=== PATIENT | male | born 1940 | race Caucasian/White ===

== ENCOUNTER 2017-02-05 19:01 | Emergency (ER) | payer MEDICARE, BC ==
[2017-02-05 20:37] LABS: ABSOLUTE EOSINOPHILS # (AUTO) 0.1 10^3/uL (0.0-0.6); ABSOLUTE LYMPHOCYTES (AUTO) 1.5 10^3/uL (0.5-4.7); ABSOLUTE MONOCYTES (AUTO) 0.5 10^3/uL (0.1-1.4); ABSOLUTE NEUT (AUTO) 4.1 10^3/uL (1.7-8.2); BASOPHILS % (AUTO) 0.7 % (0-2); EOSINOPHILS % (AUTO) 1.1 % (0-6); HEMATOCRIT 43.7 % (37.9-51.0); HEMOGLOBIN 14.7 g/dL (13.5-17.0); HGB HCT DIFFERENCE 0.4; LYMPHOCYTES % (AUTO) 23.8 % (13-45); MEAN CORPUSCULAR HEMOGLOBIN 30.2 pg (27.0-33.4); MEAN CORPUSCULAR HGB CONC 33.7 g/dL (32.0-36.0); MEAN CORPUSCULAR VOLUME 90 fl (80-97); MONOCYTES % (AUTO) 7.4 % (3-13); RED BLOOD COUNT 4.86 10^6/uL (4.35-5.55); RED CELL DISTRIBUTION WIDTH 14.5 % (11.5-14.0); WHITE BLOOD COUNT 6.1 10^3/uL (4.0-10.5)
--- NOTE | 2017-02-05 21:16 | RADIOLOGY REPORT (SQ) ---
EXAM DESCRIPTION: CT HEAD WITHOUT COMPLETED DATE/TIME: 02/05/2017 9:00 pm REASON FOR STUDY: intermittent confusion COMPARISON: None. TECHNIQUE: Axial images acquired through the brain without intravenous contrast. Images reviewed wi th bone, brain and subdural windows. Images stored on PACS. All CT scanners at this facility use dose modulation, iterative reconstruction, and/or weight based d osing when appropriate to reduce radiation dose to as low as reasonably achievable (ALARA). [facility]: Dose Right [facility]: CareDose [facility]: Dose Right [facility]: Teradose 4D [facility]: X2IMPACT RADIATION DOSE: mGy. LIMITATIONS: None. FINDINGS: VENTRICLES: Prominent. CEREBRUM: No masses. No hemorrhage. No midline shift. Areas of low density in the white matter mos t likely due to chronic micro-vascular ischemic change. No evidence for acute infarction. CEREBELLUM: No masses. No hemorrhage. No alteration of density. No evidence for acute infarction. EXTRAAXIAL SPACES: Mild age-related involutional change. No fluid collections. No masses. ORBITS AND GLOBE: No intra- or extraconal masses. Normal contour of globe without masses. CALVARIUM: No fracture. PARANASAL SINUSES: No fluid or mucosal thickening. SOFT TISSUES: No mass or hematoma. OTHER: No other significant finding. IMPRESSION: MILD CHRONIC CHANGES OF ATROPHY AND MICROVASCULAR ISCHEMIA. NO ACUTE PROCESS. EVIDENCE OF ACUTE STROKE: NO. TECHNICAL DOCUMENTATION: JOB ID: [id number] [place]-72 Quality ID # [id number]: Final reports with documentation of one or more dose reduction techniques (e.g., Au tomated exposure control, adjustment of the mA and/or kV according to patient size, use of iterative reconstruction technique) 2010 [employer]- All Rights Reserved
[2017-02-05 21:29] LABS: ALANINE AMINOTRANSFERASE 40 U/L (21-72); ALBUMIN 4.7 g/dL (3.5-5.0); ALCOHOL < 10 mg/dL (NONE DETECTED); ALKALINE PHOSPHATASE 70 U/L (38-126); ANION GAP 13 (5-19); ASPARTATE AMINO TRANSFERASE 30 U/L (17-59); BILIRUBIN,DIRECT 0.5 mg/dL (0.0-0.4); BILIRUBIN,TOTAL 0.8 mg/dL (0.2-1.3); BLOOD UREA NITROGEN 15 mg/dL (7-20); CALCIUM 10.2 mg/dL (8.4-10.2); CARBON DIOXIDE 27 mmol/L (22-30); CHLORIDE 104 mmol/L (98-107); CREATININE RESULT 0.82 mg/dL (0.52-1.25); GLUCOSE 91 mg/dL (75-110); POTASSIUM 4.3 mmol/L (3.6-5.0); SODIUM 144.3 mmol/L (137-145); TOTAL PROTEIN 7.6 g/dL (6.3-8.2)
[2017-02-05] MEDS ORDERED: TAMSULOSIN HCL 0.4 MG CAP.SR.24H PO ONE (23:00)
[2017-02-05] MEDS ORDERED: RANOLAZINE 500 MG TAB.SR.12H PO ONE (23:00)
[2017-02-05] MEDS ORDERED: METOPROLOL SUCCINATE 25 MG TAB.SR.24H PO ONE (23:45)
[2017-02-06 00:38] LABS: APPEARANCE,URINE CLEAR; BILIRUBIN,URINE NEGATIVE (NEGATIVE); GLUCOSE, URINE NEGATIVE (NEGATIVE); KETONES,URINE TRACE mg/dL (NEGATIVE); LEUKOCYTE ESTERASE,URINE NEGATIVE (NEGATIVE); NITRITE,URINE NEGATIVE (NEGATIVE); PROTEIN,URINE NEGATIVE (NEGATIVE); URINE SPECIFIC GRAVITY 1.006; UROBILINOGEN,URINE NEGATIVE mg/dL (<2.0)
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
[2017-02-06 00:51] LABS: URINE BARBITURATES SCREEN NEGATIVE; URINE METHADONE SCREEN NEGATIVE; URINE OPIATES LOW NEGATIVE; URINE PHENCYCLIDINE SCREEN NEGATIVE
--- NOTE | 2017-02-06 07:50 | EKG REPORT ---
SEVERITY:- ABNORMAL ECG - SINUS RHYTHM BORDERLINE T ABNORMALITIES, INFERO LATERAL LEADS : Confirmed by: Nik Mckinley MD 06-Feb-2017 07:49:06
--- NOTE | 2017-02-06 07:50 | EKG REPORT ---
SEVERITY:- ABNORMAL ECG - SINUS RHYTHM BORDERLINE T WAVE ABNORMALITIES : Confirmed by: Nik Mckinley MD 06-Feb-2017 07:49:33
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
--- NOTE | 2017-02-06 09:27 | ER Document Report ---
Doctor's Note Notes: 02/06/17 09:26 77-year-old male with some increased confusion over the last year and a half. Patient was brought in by family for IVC. Patient supposedly has been aggressive with family members and . Labs and imaging as recorded. Vital signs have improved and are stable. Patient will be disch we are awaiting psychiatric evaluation and possible placement.
[2017-02-06] MEDS: RANOLAZINE 500 MG TAB.SR.12H PO SCH ×2 (09:52→18:06)
[2017-02-06] MEDS: MULTIVITAMIN TABLET PO SCH (09:52)
[2017-02-06] MEDS: DIVALPROEX SODIUM 500 MG TAB.SR.24H PO SCH ×2 (09:52→18:05)
[2017-02-06] MEDS: METOPROLOL SUCCINATE 25 MG TAB.SR.24H PO SCH (09:53)
[2017-02-06] MEDS: ASPIRIN 81 MG TABLET, CHEWABLE PO SCH ×2 (09:53→18:06)
[2017-02-06] MEDS: TAMSULOSIN HCL 0.4 MG CAP.SR.24H PO SCH (09:53)
[2017-02-06] MEDS: BUSPIRONE HCL 10 MG TABLET PO SCH ×2 (09:54→18:06)
[2017-02-06] MEDS ORDERED: (PENDING PHARMACY ID) (Ubidecarenone [Co Q-10] 100 MG) PO SCH (10:00)
[2017-02-06] MEDS ORDERED: [UNRECOGNIZED DRUG - OTHER] PO SCH (10:00)
[2017-02-06] MEDS ORDERED: FOLIC ACID PO SCH ×2 (10:00)
[2017-02-06] MEDS ORDERED: CYANOCOBALAMIN PO SCH (10:00)
[2017-02-06] MEDS ORDERED: RIBOFLAVIN PO SCH (10:00)
[2017-02-06] MEDS ORDERED: CHOLECALCIFEROL PO SCH (10:00)
[2017-02-06] MEDS ORDERED: B6 PO SCH (10:00)
[2017-02-06] MEDS ORDERED: PYRIDOXINE PO SCH (10:00)
[2017-02-06] MEDS ORDERED: VIT B12 PO SCH (10:00)
[2017-02-06] MEDS ORDERED: CLORAZEPATE DIPOTASSIUM 7.5 MG TABLET PO SCH (16:30)
[2017-02-06] MEDS ORDERED: CLORAZEPATE DIPOTASSIUM 7.5 MG TABLET PO ONE (20:00)
[2017-02-06] MEDS ORDERED: ATORVASTATIN CALCIUM 10 MG TABLET PO SCH ×2 (22:00)
[2017-02-06] MEDS: ATORVASTATIN CALCIUM 40 MG TABLET PO SCH (23:17)
[2017-02-07] MEDS ORDERED: LORAZEPAM INJ 2 MG/1 ML VIAL IM ONE (04:33)
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
[2017-02-07] MEDS ORDERED: CLORAZEPATE DIPOTASSIUM 7.5 MG TABLET PO SCH (10:00)
[2017-02-07] MEDS: METOPROLOL SUCCINATE 25 MG TAB.SR.24H PO SCH (11:04)
[2017-02-07] MEDS: BUSPIRONE HCL 10 MG TABLET PO SCH ×2 (11:05→18:55)
[2017-02-07] MEDS: RANOLAZINE 500 MG TAB.SR.12H PO SCH (11:30)
[2017-02-07] MEDS: TAMSULOSIN HCL 0.4 MG CAP.SR.24H PO SCH (11:36)
[2017-02-07] MEDS: DIVALPROEX SODIUM 500 MG TAB.SR.24H PO SCH ×2 (11:37→22:30)
[2017-02-07] MEDS: MULTIVITAMIN TABLET PO SCH (11:37)
[2017-02-07] MEDS: ASPIRIN 81 MG TABLET, CHEWABLE PO SCH ×2 (11:41→18:55)
[2017-02-07] MEDS ORDERED: RISPERIDONE 0.25 MG TABLET PO ONE (13:21)
[2017-02-08] MEDS ORDERED: DIPHENHYDRAMINE HCL 50 MG/ML VIAL IM ONE (01:43)
--- NOTE | 2017-02-08 02:59 | ER Document Report ---
Doctor's Note Notes: 02/08/17 02:57 This is a 77-year-old man with dementia who was brought in as an IVC. The patient requires long term facility with a dementia rios. He is awaiting placement. I have reviewed the psychiatry notes. Patient does get agitated at night and we will need a plan when that agitation occurs. His vital signs have been stable. We will continue to observe. 02/08/17 02:59
--- NOTE | 2017-02-08 09:59 | ER Document Report ---
Doctor's Note Notes: 02/08/17 09:56 Rounds: Chart reviewed. Patient sleeping very soundly, so not disturbed. From review of chart and discussion with mental health provider, patient appears to be exhibiting signs and symptoms of dementia. Lab studies were all essentially unremarkable and normal. Vital signs have been normal. Patient has been started on Depakote. Mental health feels that if his level is therapeutic, he can be discharged home to follow-up with his primary care provider. Patient apparently lives in a house next to his son which will allow them to help take care of him in a familiar setting. Patient appears to be medically stable for transfer or discharge. Lc Portillo MD 02/08/17 11:57 Nurse reports patient very sleepy and concerned that she cannot get him to take his medications. I entered the room and asked the patient is name and he responded with the appropriate first and last names. Does not appear to be overly sleepy at this time. Color looks good. Will check an Accu-Chek and vital signs. Patient had a valproic acid level checked and it is in the low therapeutic range. Have asked them to sit patient up in a chair at bedside to see if that may awaken any more. I also told the nurse to hold his BuSpar dose that is due now. Lc Portillo MD
[2017-02-08] MEDS: BUSPIRONE HCL 10 MG TABLET PO SCH ×2 (10:00→18:13)
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
[2017-02-08] MEDS: MULTIVITAMIN TABLET PO SCH (12:01)
[2017-02-08] MEDS: ASPIRIN 81 MG TABLET, CHEWABLE PO SCH ×2 (12:01→18:13)
[2017-02-08] MEDS: TAMSULOSIN HCL 0.4 MG CAP.SR.24H PO SCH (12:01)
[2017-02-08] MEDS: DIVALPROEX SODIUM 500 MG TAB.SR.24H PO SCH ×2 (12:02→21:25)
[2017-02-08] MEDS: RANOLAZINE 500 MG TAB.SR.12H PO SCH ×2 (12:02→18:13)
[2017-02-08] MEDS: METOPROLOL SUCCINATE 25 MG TAB.SR.24H PO SCH (12:03)
[2017-02-08] MEDS: ATORVASTATIN CALCIUM 40 MG TABLET PO SCH (21:27)
[2017-02-09] MEDS: METOPROLOL SUCCINATE 25 MG TAB.SR.24H PO SCH (11:06)
[2017-02-09] MEDS: DIVALPROEX SODIUM 500 MG TAB.SR.24H PO SCH (11:06)
[2017-02-09] MEDS: TAMSULOSIN HCL 0.4 MG CAP.SR.24H PO SCH (11:07)
[2017-02-09] MEDS: RANOLAZINE 500 MG TAB.SR.12H PO SCH (11:07)
[2017-02-09] MEDS: ASPIRIN 81 MG TABLET, CHEWABLE PO SCH (11:07)
[2017-02-09] MEDS: BUSPIRONE HCL 10 MG TABLET PO SCH (11:07)
[2017-02-09] MEDS: MULTIVITAMIN TABLET PO SCH (11:07)
--- NOTE | 2017-02-09 12:38 | ER Document Report ---
Doctor's Note Notes: 02/09/17 12:37 Rounds: Chart reviewed and patient interviewed. Patient seems to be calmer and answers questions appropriately. Vital signs are all normal. Valproic acid level was in the low therapeutic range. Patient appears to be medically stable for transfer or discharge. Mental health has assessed the patient and feels he can be discharged to be followed up as an outpatient. Patient's primary problem seems to be mostly likely dementia. Lc Portillo MD
[2017-02-09 14:00] VITALS: BP 171/64
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
== END 2017-02-09 14:07 | disposition home or self-care (01) ==
LOC: ER 19:01
DX: F03.90 Unspecified dementia, unspecified severity, without behavioral disturbance, psychotic disturbance, mood disturbance, and anxiety (principal); S41.111A Laceration without foreign body of right upper arm, initial encounter; X58.XXXA Exposure to other specified factors, initial encounter; Y92.239 Unspecified place in hospital as the place of occurrence of the external cause; I10 Essential (primary) hypertension; E78.00 Pure hypercholesterolemia, unspecified; Z88.6 Allergy status to analgesic agent; Z90.49 Acquired absence of other specified parts of digestive tract; Z78.1 Physical restraint status
CPT/HCPCS: 93005; 99285; 96372; 36415; 82962; 80307 ×4; 85025; 80053; 81001; 80164; 70450; 93010; A9270 ×34; J1200; J2060; J3490

== ENCOUNTER 2019-09-02 20:45 | Emergency (ER) | payer MEDICARE, BC ==
--- NOTE | 2019-09-02 21:52 | ER Document Report ---
ED Medical Screen (RME) - General Chief Complaint: Swelling of Lower Extremity Stated Complaint: MEMORY Primary Care Provider: RENEE ESTEVEZ MD [Primary Care Provider] - Follow up as needed Notes: Patient is an 79-year-old white male with a history of osteoarthritis, prior "heart problems" who presents the emergency department again by his with a chief complaint of lower extremity edema. also states that she is concerned about some occasional episodes of confusion though patient denies anything like this. I have treated and performed a rapid initial assessment of this patient. A comprehensive ED assessment and evaluation of the patient, analysis of test results and completion of medical decision making process will be conducted by additional ED providers. PHYSICAL EXAMINATION: GENERAL: Well-appearing, well-nourished and in no acute distress. A&Ox4. Answers questions appropriately. TRAVEL OUTSIDE OF THE [place] IN LAST 30 DAYS: No - Related Data Allergies/Adverse Reactions: adhesive tape Allergy (Verified 02/05/17 22:24) ketoconazole Allergy (Verified 02/05/17 22:25) meperidine [From Demerol] Allergy (Verified 02/05/17 22:25) ibuprofen Adverse Reaction (Verified 02/05/17 22:26) Home Medications: furosemide. metoprolosuccinate. Buspirone. pantoprazole sodium. Pregabalin. Ranolazine ER. Hydrochlorothiazie. oxycodone. livalo. Stoole softener. Betamethasone. Nitrostat. Polythylene Glyeol Past Medical History - Social History Chew tobacco use (# tins/day): No Frequency of alcohol use: None Drug Abuse: None - Past Medical History Cardiac Medical History: Reports: Hx Hypercholesterolemia, Hx Hypertension Renal/ Medical History: Denies: Hx Peritoneal Dialysis Past Surgical History: Reports: Hx Cholecystectomy Physical Exam - Vital signs Vitals: Temp Pulse Resp BP Pulse Ox 98.5 F 79 20 198/85 H 98 09/02/19 21:15 09/02/19 21:15 09/02/19 21:15 09/02/19 21:15 09/02/19 21:15 Course - Vital Signs Vital signs: Temp Pulse Resp BP Pulse Ox 98.5 F 79 20 198/85 H 98 09/02/19 21:38 09/02/19 21:15 09/02/19 21:15 09/02/19 21:15 09/02/19 21:15 Doctor's Discharge - Discharge Referrals: RENEE ESTEVEZ MD [Primary Care Provider] - Follow up as needed
--- NOTE | 2019-09-02 22:25 | RADIOLOGY REPORT (SQ) ---
EXAM DESCRIPTION: XR CHEST 1 VIEW COMPLETED DATE/TME: 09/02/2019 21:51 CLINICAL HISTORY: 79 years, Male, LE edema COMPARISON: None. NUMBER OF VIEWS: 1 TECHNIQUE: Portable chest LIMITATIONS: None. FINDINGS: Heart size upper limits of normal. Atheromatous change thoracic aorta. Osteopenia. Pacing device with sternotomy wires. No pneumothorax. Minimal blunting of the costophrenic angles consistent with tiny effusions and/or pleural thickening. Equivocal/mild interstitial edema IMPRESSION: Equivocal/mild interstitial edema with tiny bibasilar effusions and/or pleural thickening copyright 2010 [employer]- All Rights Reserved
[2019-09-03 00:19] LABS: ABSOLUTE EOSINOPHILS # (AUTO) 0.1 10^3/uL (0.0-0.6); ABSOLUTE LYMPHOCYTES (AUTO) 1.5 10^3/uL (0.5-4.7); ABSOLUTE MONOCYTES (AUTO) 0.5 10^3/uL (0.1-1.4); ABSOLUTE NEUT (AUTO) 4.3 10^3/uL (1.7-8.2); BASOPHILS % (AUTO) 0.6 % (0-2); EOSINOPHILS % (AUTO) 1.2 % (0-6); HEMATOCRIT 41.9 % (37.9-51.0); LYMPHOCYTES % (AUTO) 23.5 % (13-45); MEAN CORPUSCULAR HEMOGLOBIN 31.5 pg (27.0-33.4); MEAN CORPUSCULAR HGB CONC 33.4 g/dL (32.0-36.0); MEAN CORPUSCULAR VOLUME 94 fl (80-97); MONOCYTES % (AUTO) 8.2 % (3-13); PLATELET COUNT 264 10^3/uL (150-450); RED BLOOD COUNT 4.44 10^6/uL (4.35-5.55); RED CELL DISTRIBUTION WIDTH 13.8 % (11.5-14.0); SEGMENTED NEUTROPHILS % (AUTO) 66.5 % (42-78); TOTAL CELLS COUNTED % (AUTO) 100 %; WHITE BLOOD COUNT 6.5 10^3/uL (4.0-10.5)
[2019-09-03 00:26] LABS: INTERNATIONAL RATION (INR) 0.94; PARTIAL THROMBOPLASTIN TIME 22.9 SEC (23.5-35.8); PROTHROMBIN TIME 12.6 SEC (11.4-15.4)
[2019-09-03 00:37] LABS: ALBUMIN 4.4 g/dL (3.5-5.0); ALKALINE PHOSPHATASE 60 U/L (38-126); ANION GAP 8 (5-19); ASPARTATE AMINO TRANSFERASE 36 U/L (17-59); BILIRUBIN,TOTAL 0.6 mg/dL (0.2-1.3); BLOOD UREA NITROGEN 10 mg/dL (7-20); CALCIUM 9.7 mg/dL (8.4-10.2); CARBON DIOXIDE 27 mmol/L (22-30); CHLORIDE 105 mmol/L (98-107); CREATINE KINASE 56 U/L (55-170); GLUCOSE 95 mg/dL (75-110); POTASSIUM 3.6 mmol/L (3.6-5.0); TOTAL PROTEIN 7.1 g/dL (6.3-8.2)
[2019-09-03 01:04] LABS: TROPONIN I 0.051 ng/mL
[2019-09-03] MEDS ORDERED: FUROSEMIDE INJ/PF 20 MG/2 ML SDV IM ONE (03:25)
[2019-09-03] MEDS ORDERED: OXYCODONE-ACETAMINOPHEN 5-325 MG TABLET PO ONE (03:25)
[2019-09-03] MEDS ORDERED: OXYCODONE HCL IR 5 MG TABLET PO ONE (03:38)
--- NOTE | 2019-09-03 03:53 | ER Document Report ---
Doctor's Note Notes: 09/03/19 03:54 This 79-year-old male presented to ED for complaint of chronic heart problems congestive heart failure chronic back pain elevated blood pressure and pedal edema. He was seen earlier by another provider labs and x-rays were completed. Patient states he cannot wait to be examined he needs to leave right now he needs some pain medicines right now. I did inform him that his BNP is very elevated he does need further testing and treatment. He stated he needed to leave right now. I did discuss this with Dr Rodriguez who recommended giving the patient 20 mg of Lasix IM and oxycodone 5 mg p.o. now and if he still insisted that he had to leave right now that he would need to sign AMA. I did discuss this with the patient and his . The did sign the AMA papers understanding that he is leaving AGAINST MEDICAL ADVICE. I did recheck his blood pressure pulse and O2 sat. His blood pressure was decreased from his earlier levels. Patient did leave against medical advise.
[2019-09-03 03:55] VITALS: BP 197/81
--- NOTE | 2019-09-03 19:19 | EKG REPORT ---
SEVERITY:- ABNORMAL ECG - SINUS RHYTHM ATRIAL PREMATURE COMPLEX PROBABLE LEFT ATRIAL ABNORMALITY LVH WITH SECONDARY REPOLARIZATION ABNORMALITY BORDERLINE PROLONGED QT INTERVAL : Confirmed by: Gabrielle Dela Cruz 03-Sep-2019 19:18:47
== END 2019-09-03 03:45 | disposition left against medical advice (07) ==
LOC: ER 20:45
DX: I11.0 Hypertensive heart disease with heart failure (principal); I50.9 Heart failure, unspecified; E78.00 Pure hypercholesterolemia, unspecified; M19.90 Unspecified osteoarthritis, unspecified site; M54.9 Dorsalgia, unspecified; G89.29 Other chronic pain; Z79.891 Long term (current) use of opiate analgesic; Z79.899 Other long term (current) drug therapy; Z79.52 Long term (current) use of systemic steroids; Z91.048 Other nonmedicinal substance allergy status; Z88.8 Allergy status to other drugs, medicaments and biological substances; Z88.6 Allergy status to analgesic agent; Z88.5 Allergy status to narcotic agent; Z53.20 Procedure and treatment not carried out because of patient's decision for unspecified reasons
CPT/HCPCS: 93005; 99285; 96374; 36415; 82140; 82550; 85025; 85610; 85730; 80053; 84484; 83880; 71045; 93010; J1940; A9270

== ENCOUNTER 2019-11-22 03:57 | Emergency (ER) | payer MEDICARE, BC ==
[2019-11-22] MEDS ORDERED: HYDRALAZINE HCL INJ/PF 20 MG/1 ML SDV IV ONE (04:46)
--- NOTE | 2019-11-22 04:54 | ER Document Report ---
ED General - General TRAVEL OUTSIDE OF THE [place] IN LAST 30 DAYS: No - HPI Associated symptoms: Other - See HPI Exacerbated by: Other - See HPI Relieved by: Other - See HPI Similar symptoms previously: Yes - Related Data Home Medications: metoprolol, furosemide, buspirone, pantoprazole, pregablin, ranolazine, livalo <SIVA MCDANIEL IV - Last Filed: 11/22/19 04:48> <DEN GARCIA - Last Filed: 11/22/19 10:25> - General Chief Complaint: Blood Pressure Problem Stated Complaint: WEAKNESS Time Seen by Provider: 11/22/19 04:31 Primary Care Provider: RENEE ESTEVEZ MD [NO LOCAL MD] - Follow up as needed - HPI Context: This is a 79-year-old male with a history of hypertension presenting to the emergency department complaining of headache and elevated blood pressure. Patient states his blood pressure tends to run high and has not been responsive to many treatments in the past. Patient states he had a headache tonight that was significant enough for him to get out of bed around 3:00 and takes an aspirin for. Patient denies visual changes, slurred speech, chest pain, short ness of breath, loss of sense of taste, loss of sense of smell, known contact with COVID positive persons or persons under investigation for COVID. Patient states nothing exacerbates his symptoms and aspirin tends to alleviate his headaches. Patient states he has a headache that he rates as a 2 on a scale of 0-5 and describes the headache as throbbing. Patient takes 50 mg of metoprolol daily. (SIVA MCDANIEL IV) - Related Data Allergies/Adverse Reactions: adhesive tape Allergy (Verified 02/05/17 22:24) ketoconazole Allergy (Verified 02/05/17 22:25) meperidine [From Demerol] Allergy (Verified 02/05/17 22:25) ibuprofen Adverse Reaction (Verified 02/05/17 22:26) Past Medical History - General Information source: Patient - Social History Smoking Status: Never Smoker Frequency of alcohol use: None Drug Abuse: None Family History: Reviewed & Not Pertinent - Past Medical History Cardiac Medical History: Reports: Hx Hypercholesterolemia, Hx Hypertension Renal/ Medical History: Denies: Hx Peritoneal Dialysis Past Surgical History: Reports: Hx Cholecystectomy <SIVA MCDANIEL IV - Last Filed: 11/22/19 04:48> Review of Systems - Review of Systems Constitutional: No symptoms reported EENT: No symptoms reported Cardiovascular: See HPI Respiratory: No symptoms reported Gastrointestinal: No symptoms reported Genitourinary: No symptoms reported Male Genitourinary: No symptoms reported Musculoskeletal: No symptoms reported Skin: No symptoms reported Hematologic/Lymphatic: No symptoms reported Neurological/Psychological: Headaches -: Yes All other systems reviewed and negative <SIVA MCDANIEL IV - Last Filed: 11/22/19 04:48> Physical Exam <SIVA MCDANIEL IV - Last Filed: 11/22/19 04:48> - Vital signs Vitals: Resp Pulse Ox 23 H 98 11/22/19 03:58 11/22/19 03:58 - Notes Notes: CONSTITUTIONAL [Vital signs reviewed, Patient appears comfortable, Alert and oriented X 3, Normal stature.] HEAD [Atraumatic, Normocephalic.] EYES [Eyes are normal to inspection, No discharge from eyes, Extraocular muscles intact, Sclera are normal, Conjunctiva are normal.] NECK [Normal ROM, No jugular venous distention, No meningeal signs, no carotid bruit.] RESPIRATORY CHEST [Chest is nontender, Breath sounds normal, No respiratory distress.] CARDIOVASCULAR [RRR, No murmurs, Normal S1 S2, No rub, No gallop.] ABDOMEN [Abdomen is nontender, No pulsatile masses, No other masses, Bowel sounds normal, No distension, No peritoneal signs, No hernias.] BACK [There is no CVA Tenderness, There is no tenderness to palpation, Normal inspection.] UPPER EXTREMITY [Inspection normal, No cyanosis, No clubbing, No edema, 2+ radial pulses.] LOWER EXTREMITY [Inspection normal, No cyanosis, No clubbing, No edema, No calf tenderness, 2+ femoral pulses.] NEURO [No focal motor deficits, No focal sensory deficits, Speech normal.] SKIN [Skin is warm, Skin is dry, Skin is normal color.] LYMPHATIC [No adenopathy in neck.] PSYCHIATRIC [Normal affect. ] (SIVA MCDANIEL IV) Course <SIVA MCDANIEL IV - Last Filed: 11/22/19 04:48> - Laboratory Result Diagrams: 11/22/19 05:04 11/22/19 05:04 - Diagnostic Test Radiology reviewed: Image reviewed, Reports reviewed <DEN GARCIA - Last Filed: 11/22/19 10:25> - Re-evaluation Re-evalutation: 11/22/19 10:22 Patient was signed out to me by Dr. wilks regarding pending CT scan of the head in a patient with headache systolic hypertension (DEN GARCIA) - Vital Signs Vital signs: Temp Pulse Resp BP Pulse Ox 98.2 F 66 17 168/71 H 98 11/22/19 04:12 11/22/19 04:05 11/22/19 09:16 11/22/19 09:16 11/22/19 09:16 11/22/19 10:23 Vital signs have improved blood pressure is 168/71 Patient's headache has improved. (DEN GARCIA) - Laboratory Laboratory results interpreted by me: 11/22/19 11/22/19 05:04 05:04 RBC 4.19 L Hgb 12.8 L RDW 15.3 H Potassium 3.3 L Total Protein 5.9 L - Diagnostic Test Radiology results interpreted by me: 11/22/19 10:[address] 11/22/19 04:47 IMPRESSION: No acute intracranial abnormality. TECHNICAL DOCUMENTATION: Quality ID # 436: Final reports with documentation of one or more dose reduction techniques (e.g., Automated exposure control, adjustment of the mA and/or kV according to patient size, use of iterative reconstruction technique) copyright 2011 [employer]- All Rights Reserved CT scan of head shows a no acute process no evidence for stroke no skull fracture no soft tissue swelling cortical atrophy is noted for age. Otherwise no acute process. (DEN GARCIA) - EKG Interpretation by Me Additional EKG results interpreted by me: 11/22/19 04:52 EKG obtained on 11/22/2019 at 0409 hrs. was interpreted by this MD. Findings: Normal sinus rhythm, rate 64, normal axis, NC interval appears to be within normal limits, P waves proceed QRS complexes, QRS complex appears narrow, there are no obvious patterns of ST segment elevation or depression present to suggest acute myocardial ischemia or infarction. Impression normal sinus rhythm with nonspecific ST segments. There is no readily available prior EKG for comparison. (SIVA MCDANEIL IV) Discharge <SIVA MCDANIEL IV - Last Filed: 11/22/19 04:48> <DEN GARCIA - Last Filed: 11/22/19 10:25> - Discharge Clinical Impression: Elevated blood pressure reading Headache Qualifiers: Headache type: unspecified Headache chronicity pattern: unspecified pattern Intractability: not intractable Qualified Code(s): R51 - Headache Condition: Stable Disposition: HOME, SELF-CARE Additional Instructions: Headache The physician does not feel that the headache you are experiencing has a serious underlying cause. Most headaches are due to emotional stress, with resultant muscle tension (tension headache). Occasionally, headaches are secondary to changes in the blood vessels of the scalp (vascular headache and migraine headache). Sometimes, a headache is the first symptom of another developing illness, such as a viral infection. You have no evidence of stroke, bleeding, meningitis, or other serious cause of your headache. The treatment of headaches varies with the severity and cause of the pain. Not all headaches need pain shots. In fact, there is evidence that using narcotics for headaches may make them worse in the long run. The physician will determine the therapy that's in your best interest. If you develop a fever, if the headache is different from any you've pr eviously experienced, or if the headache progressively worsens, then call your physician at once or go to the emergency room. Forms: Elevated Blood Pressure Referrals: RENEE ESTEVEZ MD [NO LOCAL MD] - Follow up as needed
[2019-11-22 05:14] LABS: ABSOLUTE EOSINOPHILS # (AUTO) 0.1 10^3/uL (0.0-0.6); ABSOLUTE LYMPHOCYTES (AUTO) 1.9 10^3/uL (0.5-4.7); ABSOLUTE MONOCYTES (AUTO) 0.7 10^3/uL (0.1-1.4); ABSOLUTE NEUT (AUTO) 4.7 10^3/uL (1.7-8.2); BASOPHILS % (AUTO) 0.5 % (0-2); EOSINOPHILS % (AUTO) 1.7 % (0-6); HEMATOCRIT 38.3 % (37.9-51.0); HEMOGLOBIN 12.8 g/dL (13.5-17.0); LYMPHOCYTES % (AUTO) 25.3 % (13-45); MEAN CORPUSCULAR HEMOGLOBIN 30.4 pg (27.0-33.4); MEAN CORPUSCULAR HGB CONC 33.3 g/dL (32.0-36.0); MEAN CORPUSCULAR VOLUME 91 fl (80-97); MONOCYTES % (AUTO) 9.3 % (3-13); PLATELET COUNT 203 10^3/uL (150-450); RED BLOOD COUNT 4.19 10^6/uL (4.35-5.55); RED CELL DISTRIBUTION WIDTH 15.3 % (11.5-14.0); SEGMENTED NEUTROPHILS % (AUTO) 63.2 % (42-78); TOTAL CELLS COUNTED % (AUTO) 100 %; WHITE BLOOD COUNT 7.4 10^3/uL (4.0-10.5)
[2019-11-22 05:20] LABS: ALBUMIN 3.6 g/dL (3.5-5.0); ALKALINE PHOSPHATASE 56 U/L (38-126); ANION GAP 10 (5-19); ASPARTATE AMINO TRANSFERASE 21 U/L (17-59); BILIRUBIN,DIRECT 0.4 mg/dL (0.0-0.4); BILIRUBIN,TOTAL 0.9 mg/dL (0.2-1.3); BLOOD UREA NITROGEN 16 mg/dL (7-20); CALCIUM 8.8 mg/dL (8.4-10.2); CARBON DIOXIDE 30 mmol/L (22-30); CHLORIDE 102 mmol/L (98-107); GLUCOSE 86 mg/dL (75-110); POTASSIUM 3.3 mmol/L (3.6-5.0); TOTAL PROTEIN 5.9 g/dL (6.3-8.2)
--- NOTE | 2019-11-22 06:12 | RADIOLOGY REPORT (SQ) ---
EXAM DESCRIPTION: CT HEAD WITHOUT IV CONTRAST COMPLETED DATE/TME: 11/22/2019 04:47 CLINICAL HISTORY: 79 years, Male, headache, high bp COMPARISON: 02/05/2017 TECHNIQUE: Axial CT images of the brain were obtained without contrast. Sagittal and coronal reformats were performed. DLP 904 Images stored on PACS. All CT scanners at this facility use dose modulation, iterative reconstruction, and/or weight based dosing when appropriate to reduce radiation dose to as low as reasonably achievable (ALARA). [facility]: Dose Right [facility]: CareDose [facility]: Dose Right [facility]: Teradose 4D [facility]: FUZE Fit For A Kid! LIMITATIONS: None. FINDINGS: There is no acute cortical infarct, hemorrhage, mass, edema, hydrocephalus, or extra-axial fluid collection. There is diffuse cerebral atrophy with periventricular and deep white matter chronic microvascular changes. The paranasal sinuses and mastoid air cells are clear. There is no acute fracture. IMPRESSION: No acute intracranial abnormality. TECHNICAL DOCUMENTATION: Quality ID # 436: Final reports with documentation of one or more dose reduction techniques (e.g., Automated exposure control, adjustment of the mA and/or kV according to patient size, use of iterative reconstruction technique) copyright 2010 [employer]- All Rights Reserved
[2019-11-22 10:35] VITALS: BP 185/75
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
--- NOTE | 2019-11-24 00:49 | EKG REPORT ---
SEVERITY:- ABNORMAL ECG - SINUS RHYTHM NONSPECIFIC REPOL ABNORMALITY, DIFFUSE LEADS BORDERLINE PROLONGED QT INTERVAL : Confirmed by: Gabrielle Dela Cruz 24-Nov-2019 00:48:41
== END 2019-11-22 10:44 | disposition home or self-care (01) ==
LOC: ER 03:57
DX: I10 Essential (primary) hypertension (principal); R51 Headache; W20.8XXA Other cause of strike by thrown, projected or falling object, initial encounter; E78.00 Pure hypercholesterolemia, unspecified; Z79.899 Other long term (current) drug therapy; Z91.048 Other nonmedicinal substance allergy status; Z88.6 Allergy status to analgesic agent; Z88.5 Allergy status to narcotic agent; Z88.3 Allergy status to other anti-infective agents
CPT/HCPCS: 93005; 99285; 96374; 36415; 85025; 80053; 70450; 93010; J0360

== ENCOUNTER 2020-02-16 19:14 | Emergency (ER) | payer MEDICARE, BC ==
[2020-02-16 19:47] LABS: ABSOLUTE LYMPHOCYTES (AUTO) 0.9 10^3/uL (0.5-4.7); ABSOLUTE MONOCYTES (AUTO) 0.7 10^3/uL (0.1-1.4); ABSOLUTE NEUT (AUTO) 3.7 10^3/uL (1.7-8.2); BASOPHILS % (AUTO) 0.6 % (0-2); EOSINOPHILS % (AUTO) 0.8 % (0-6); HEMATOCRIT 39.1 % (37.9-51.0); HEMOGLOBIN 12.8 g/dL (13.5-17.0); LYMPHOCYTES % (AUTO) 17.5 % (13-45); MEAN CORPUSCULAR HEMOGLOBIN 28.7 pg (27.0-33.4); MEAN CORPUSCULAR HGB CONC 32.7 g/dL (32.0-36.0); MEAN CORPUSCULAR VOLUME 88 fl (80-97); MONOCYTES % (AUTO) 12.3 % (3-13); PLATELET COUNT 255 10^3/uL (150-450); RED BLOOD COUNT 4.45 10^6/uL (4.35-5.55); RED CELL DISTRIBUTION WIDTH 14.8 % (11.5-14.0); SEGMENTED NEUTROPHILS % (AUTO) 68.8 % (42-78); TOTAL CELLS COUNTED % (AUTO) 100 %; WHITE BLOOD COUNT 5.4 10^3/uL (4.0-10.5)
[2020-02-16 19:48] LABS: VENOUS BLOOD BASE EXCESS 1.6 mmol/L; VENOUS BLOOD HCO3 25.6 mmol/L (20-32); VENOUS BLOOD PCO2 38.4 mmHg (35-63); VENOUS BLOOD PH 7.44 (7.30-7.42)
[2020-02-16 19:56] LABS: INTERNATIONAL RATION (INR) 0.98; PROTHROMBIN TIME 13.2 SEC (11.4-15.4)
[2020-02-16 20:04] LABS: ALBUMIN 3.5 g/dL (3.5-5.0); ALKALINE PHOSPHATASE 78 U/L (38-126); ANION GAP 12 (5-19); ASPARTATE AMINO TRANSFERASE 53 U/L (17-59); BILIRUBIN,DIRECT 0.5 mg/dL (0.0-0.4); BILIRUBIN,TOTAL 1.2 mg/dL (0.2-1.3); BLOOD UREA NITROGEN 16 mg/dL (7-20); CARBON DIOXIDE 26 mmol/L (22-30); CHLORIDE 103 mmol/L (98-107); GLUCOSE 78 mg/dL (75-110); POTASSIUM 3.2 mmol/L (3.6-5.0); TOTAL PROTEIN 6.3 g/dL (6.3-8.2)
[2020-02-16 21:14] LABS: APPEARANCE,URINE SLIGHTLY-CLOUDY; BILIRUBIN,URINE NEGATIVE (NEGATIVE); COLOR,URINE AMBER; GLUCOSE, URINE NEGATIVE (NEGATIVE); KETONES,URINE 20 mg/dL (NEGATIVE); PROTEIN,URINE 100 mg/dL (NEGATIVE); URINE SPECIFIC GRAVITY 1.023
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
[2020-02-16] MEDS ORDERED: NORMAL SALINE 500 ML IV ONE (21:27)
[2020-02-16] MEDS: POTASSI CL 20 MEQ/50 ML RIDER 20 MEQ/50 ML RTUPB IV SCH ×2 (21:47→23:00)
[2020-02-16] MEDS ORDERED: MORPHINE SULFATE 10 MG/ML INJ IV ONE (21:50)
--- NOTE | 2020-02-16 22:11 | RADIOLOGY REPORT (SQ) ---
EXAM DESCRIPTION: CT HEAD WITHOUT IV CONTRAST COMPLETED DATE/TME: 02/16/2020 21:26 CLINICAL HISTORY: 80 years, Male, AMS; covid positive COMPARISON: CT 11/22/2019 and 02/05/2017 TECHNIQUE: Axial images without IV contrast. Sagittal coronal reconstruction. This exam was performed according to our departmental dose-optimization program, which includes automated exposure control, adjustment of the mA and/or kV according to patient size and/or use of iterative reconstruction technique.. Images stored on PACS. FINDINGS: Moderate ventriculomegaly and and odyt-[id number]-dvkyeyje cortical atrophy. Transverse diameter of third ventricle is 9 mm. Measurement was 7.5 mm in 2017. Periventricular white matter hypodensities. No acute intra-axial or extra-axial abnormalities. Advanced atherosclerotic disease. Paranasal sinuses, mastoid air cells and bony calvarium are unremarkable. IMPRESSION: 1. Ventricles larger compared to size cortical sulci. Mildly worse since 2017. May represent NPH or atrophy that is predominately central. Advanced atherosclerotic disease. 2. No acute findings.
--- NOTE | 2020-02-16 22:14 | RADIOLOGY REPORT (SQ) ---
EXAM DESCRIPTION: XR CHEST 1 VIEW COMPLETED DATE/TME: 02/16/2020 21:27 CLINICAL HISTORY: Confusion; covid +; eval pneumonia COMPARISON: 09/02/2019 FINDINGS: Single frontal radiograph view of the chest. Cardiomediastinal silhouette: Cardiomegaly. Prior median sternotomy. Left-sided multilead generator. Lungs: Patchy bibasilar opacities. No pneumothorax or large effusion. Bones: Degenerative endplate spondylosis of the spine. Degenerative change of the glenohumeral and acromioclavicular joints. Upper abdomen: No abnormality identified. IMPRESSION: 1. Findings concerning for bilateral pneumonic process. Viral pneumonia could produce this appearance. 2. Cardiomegaly.
[2020-02-16] MEDS ORDERED: AZITHROMYCIN 250 MG TABLET PO ONE (22:46)
[2020-02-16] MEDS ORDERED: CEFTRIAXONE INJ 1000 MG VIAL IV ONE (22:46)
[2020-02-16 23:13] LABS: TROPONIN I 0.059 ng/mL
[2020-02-17] MEDS ORDERED: CEFTRIAXONE INJ 1000 MG VIAL IM ONE (00:21)
--- NOTE | 2020-02-17 00:49 | Progress Note ---
Provider Note Provider Note: This is a consultation note requested by the emergency department provider to evaluate this gentleman for possible admission. The emergency department provider was not sure that this patient needs to be hospitalized or not. History of present illness the patient presented with confusion to the emergency department. The patient is suffering from dementia most likely Lewy body dementia. He was recently hospitalized at the [facility] between 11 February to 13 February. I had opportunity to review the records from [facility]. It looks like the patient was suffering from severe agitation, loss of control of bowel and bladder and hallucinations. He had significant gait abnormality. He was also diagnosed with coronavirus infection. He did not have any significant respiratory symptoms. Eventually he was discharged home with family. The patient remained agitated confused and he was brought back to the emergency department today. He was found to have hypokalemia which is not new. Chest x- ray revealed bilateral infiltrates consistent with viral pneumonia. His WBC count was not elevated. He is afebrile. He maintains good oxygen saturation in the high 90s to 100% on room air. He does not appear to be in respiratory distress or pain. He is not coughing. He was given ceftriaxone and Zithromax. He was given intravenous fluid and potassium. When I arrived to see him he was comfortable. He was oriented to himself, he could not say that he is in the hospital, he said this is a place where they helping people. He was not oriented in time and he did not know why he is here. He had auditory hallucinations, he was hearing voices from his pacemaker. Past medical history is important for hypertension, recurrent hypokalemia, progressive dementia with hallucinations and gait abnormality, suspicious for Lewy body dementia. Laboratory studies were reviewed Physical examination revealed blood pressure 160/80 heart rate 98/min respiratory rate 14/min oxygen saturation 99% on room air. He was afebrile. Head and neck examination with moist mucosa, no nuchal rigidity, no lymphadenopa thy. Lungs with few crackles no wheezing or rhonchi. Heart regular rate and rhythm no murmur or gallop Abdomen soft nontender no organomegaly or mass Extremities without any acute deformity, no edema, good peripheral pulses. Good capillary refill. No skin rash, no sign of injury. Patient is alert, oriented to himself, somewhat oriented in place but not very well, disoriented in time and disoriented to situation. No focal weakness. Impression #1 coronavirus infection with viral pneumonia without any hypoxemia. The patient maintains good oxygen saturation on room air 2. Bilateral infiltrates consistent with viral pneumonia. Bacterial pneumonia seems to be unlikely. I ordered a procalcitonin level which may give some additional help. 3. Hypokalemia, potassium was replaced 4. Severe advanced dementia with gait abnormalities, loss of control of bowel and bladder. This is unchanged since previous hospitalization couple days ago at the [facility]. The patient will need outpatient neurology evaluation. Recommendations I discussed the case with the emergency department provider. I told her I am more than happy to admit the patient if the family wishes to do so but I believe the patient would be better served if he is going to be discharged home. Because he has coronavirus infection he will be admitted to an isolation room, without having any visitors. I believe it would significantly increase his agitation confusion and hallucinosis. The patient does not require any special intervention, he is hemodynamically stable, he maintains good oxygen saturation, he does not appear to be in any physical distress, pain or shortness of breath. The emergency department provider already discussed this with the patient who is coming to pick him up. In case the patient is developing shortness of breath or other discomfort he needs to return to the emergency department. This is going to be communicated to the family. His entire family tested positive for coronavirus, they would be able to take care of him.
[2020-02-17 01:26] VITALS: BP 128/72
--- NOTE | 2020-02-18 13:19 | EKG REPORT ---
SEVERITY:- ABNORMAL ECG - SINUS TACHYCARDIA VENTRICULAR PREMATURE COMPLEXES REPOL ABNRM SUGGESTS ISCHEMIA, DIFFUSE LEADS VS LVH : Confirmed by: Gabreille Dela Cruz 18-Feb-2020 13:19:19
== END 2020-02-17 01:22 | disposition home or self-care (01) ==
LOC: ER 19:14
DX: U07.1 COVID-19 (principal); J12.89 Other viral pneumonia; R41.0 Disorientation, unspecified; I50.9 Heart failure, unspecified; I11.0 Hypertensive heart disease with heart failure; E78.5 Hyperlipidemia, unspecified; I25.10 Atherosclerotic heart disease of native coronary artery without angina pectoris; Z95.1 Presence of aortocoronary bypass graft; Z88.8 Allergy status to other drugs, medicaments and biological substances
CPT/HCPCS: 93005; 99285; 96372; 96361 ×2; 96374; 36415; 87040; 87086; 84145; 82962; 83605; 85025; 85610; 80053; 81001; 84484; 82803; 83880; 71045; 70450; 93010; A9270; J2270; J0696; J3480; J7040